=== PATIENT | female | born 1945 | race Hispanic/Latino ===

== ENCOUNTER 2020-07-27 09:01 | Day surgery (SDC) | payer MEDICARE ==
[~2020-07-27 09:01] MED LIST: SODIUM CHLORIDE 0.9% 1000 ML 1,000 ML IV SCH
--- NOTE | 2020-07-27 10:06 | Anesthesia Consultation ---
Anesthesia Consult and Med Hx Date of service: 07/27/20 - Airway Anesthetic Teeth Evaluation: Partials (lower) ROM Head & Neck: Adequate Mental/Hyoid Distance: Adequate Mallampati Class: Class II Intubation Access Assessment: Probably Good - Pre-Operative Health Status ASA Pre-Surgery Classification: ASA2 Proposed Anesthetic Plan: MAC - Pulmonary Hx Smoking: Yes (former smoker quit 2 yrs ago) Hx Respiratory Symptoms: No - Cardiovascular System Hx Hypertension: No - Central Nervous System CVA: No - Endocrine Hx Renal Disease: No Hx Liver Disease: No Hx Insulin Dependent Diabetes: No Hx Non-Insulin Dependent Diabetes: No Hx Thyroid Disease: No - Other Systems Hx Obesity: No
--- NOTE | 2020-07-27 10:06 | Anesthesia Day of Surgery ---
Anesthesia Day of Surgery - Day of Surgery Patient Examined: Yes Patient H&P Reviewed: Yes Patient is NPO: Yes
[2020-07-27] MEDS ORDERED: propofoL 200 MG/20 ML VIAL IV ONE ×3 (10:07→10:45)
[2020-07-27] MEDS ORDERED: LIDOCAINE MPF (2%) 20 MG/1 ML VIAL 5 ML ONE (10:07)
--- NOTE | 2020-07-27 10:59 | Procedure Note ---
Date of procedure: 07/27/20 Pre-op diagnosis: Colon Polyp screening/ F/H/O Cancer (Colon Cancer-Mother) Post-op diagnosis: other (Colon Polyps (Proximal Transverse Colon-removed by Hot Snare Polypectomy; Few Rectal Polyps removed by Cold Biopsy)/ Few,Scattered Diverticuli/ Minor,Internal Hemorrhoid) Procedure: Colonoscopy with Cold Biopsy and Hot,Snare Polypectomy Anesthesia: MAC Surgeon: TABBY HOLLAND Estimated blood loss: minimal Pathology: list Specimen disposition: to lab Condition: stable Disposition: same day (Avoid aspirin and NSAID for 4 days; otherwise resume home medication. Encourage fiber intake and follow up in 1 to 2 weeks ([phone]).)
--- NOTE | 2020-07-27 11:01 | Operative Report ---
PROCEDURE: Colonoscopy. INDICATIONS: A 75-year-old white female who had a colon polyp screening done. She has a family history of colon cancer. The patient's mother had colon cancer. DESCRIPTION OF PROCEDURE: The procedure was done after getting informed consent with MAC anesthesia. Initial rectal exam was unremarkable. Instrument was passed through the rectum onto the cecum, which was identified with ileocecal valve and appendiceal orifice. The cecum was visualized on the retroverted view. No additional pathology was noted. Visualization was fair to good. Cecum, ascending colon showed normal mucosa with a few scattered diverticula noted in the proximal colon. There were a few scattered diverticula also noted in the transverse colon as well as the left colon. In the proximal transverse colon, there was a 12 mm sessile polyp that was removed using a snare polypectomy and remnants of the polyp was then retrieved. Remaining part of the transverse colon showed normal mucosa. Again, on the left colon there were a few diverticula noted in the descending colon and the sigmoid. In the rectum, there were several small polyps, possibly hyperplastic that were removed by cold biopsy with minimal bleeding. The patient had minor internal hemorrhoid on the retroverted view. ASSESSMENT: Colon polyp screening, family history of cancer. The patient's mother had colon cancer, multiple colon polyps in the rectum, which were possibly hyperplastic. A larger polyp in the proximal transverse colon, possibly tubular adenoma in type, which was sessile and removed by snare polypectomy. Few scattered diverticula noted throughout the colon and minor internal hemorrhoid. There was minimal bleeding associated with the procedure. No complications associated with the procedure. The patient will be asked to avoid aspirin and aspirin-related products for the next few days. Otherwise, resume home medication and also encouraged to take fiber supplements and follow up in the office in 1-2 weeks' time. Procedure was done in the GI lab with assistance of the GI lab team, which included MY, Janett Mills; José Miguel coronel and with assistance of anesthesia. JOB# [id number] MONA/SANTA
[2020-07-27 12:19] VITALS: BP 144/50
--- NOTE | 2020-07-27 13:14 | Post Anesthesia Evaluation ---
- Post Anesthesia Evaluation Patient Participated: Yes Airway Patent: Yes Stable Respiratory Function: Yes Nausea/Vomiting: No Temp > 96.8F: Yes Pain Manageable: Yes Adequeate Hydration: Yes Anesthesia Complications: No
== END 2020-07-27 11:55 | disposition home or self-care (01) ==
LOC: GIO 09:01
DX: Z12.11 Encounter for screening for malignant neoplasm of colon (principal); K57.30 Diverticulosis of large intestine without perforation or abscess without bleeding; K64.8 Other hemorrhoids; K62.1 Rectal polyp; D12.3 Benign neoplasm of transverse colon; Z80.0 Family history of malignant neoplasm of digestive organs; Z88.5 Allergy status to narcotic agent; Z88.0 Allergy status to penicillin; Z87.891 Personal history of nicotine dependence
CPT/HCPCS: 45380; 45385; 88305; J2704; J7030